=== PATIENT | female | born 1985 | race Asian ===

== ENCOUNTER 2016-06-23 17:21 | Emergency (ER) | payer BC, OTHER ==
[2016-06-23 18:04] VITALS: BP 111/70
--- NOTE | 2016-06-23 18:17 | UC ---
Throat Pain/Nasal Hansel HPI - HPI Summary HPI Summary: SORE THROAT X 2 DAYS + COUGH , CHEST CONGESTION NO FEVER, NO CHILLS - History of Current Complaint Chief Complaint: UCRespiratory Stated Complaint: SORE THROAT,COUGH,CONGESTION Time Seen by Provider: 06/23/16 18:11 Hx Obtained From: Patient Hx Last Menstrual Period: 06/13/16 Onset/Duration: Gradual Onset, Lasting Days - 2, Still Present Severity: Moderate Cough: Nonproductive Associated Signs & Symptoms: Negative: Dysphagia, FB Sensation, Drooling, Wheezing, Sinus Discomfort, Nasal Discharge, Fever, Vomiting, Rash - Allergies/Home Medications Allergies/Adverse Reactions: Allergies Allergy/AdvReac Type Severity Reaction Status Date / Time trees Allergy Runny Nose Uncoded 06/23/16 18:05 PMH/Surg Hx/FS Hx/Imm Hx Previously Healthy: Yes Endocrine History Of: Denies: Diabetes Cardiovascular History Of: Denies: Cardiac Disorders Respiratory History Of: Denies: Asthma - Surgical History Surgical History: Yes Surgery Procedure, Year, and Place: oral - Family History Known Family History: Positive: Cardiac Disease - father [place] at age 60, Diabetes - mother - Social History Alcohol Use: Occasionally Substance Use Type: None Smoking Status (MU): Never Smoked Tobacco Review of Systems Constitutional: Negative Skin: Negative Eyes: Negative ENT: Sore Throat Respiratory: Cough Cardiovascular: Negative All Other Systems Reviewed And Are Negative: Yes Physical Exam Triage Information Reviewed: Yes Appearance: Well-Appearing, No Pain Distress, Well-Nourished Vital Signs: Initial Vital Signs Temp 98.4 F 06/23/16 17:57 Pulse 78 06/23/16 17:57 Resp 20 06/23/16 17:57 BP 111/70 06/23/16 17:57 Pulse Ox 100 06/23/16 17:57 Vital Signs Reviewed: Yes Eyes: Positive: Conjunctiva Clear ENT: Positive: Normal ENT inspection, Hearing grossly normal, Pharyngeal erythema, TMs normal. Negative: Nasal congestion, Nasal drainage Neck: Positive: Supple, Nontender, No Lymphadenopathy Respiratory: Positive: Chest non-tender, Lungs clear, Normal breath sounds Cardiovascular: Positive: RRR, No Murmur, Pulses Normal Throat Pain/Nasal Course/Dx - Differential Dx/Diagnosis Provider Diagnoses: VIRAL PHARYNGITIS Discharge - Discharge Plan Condition: Stable Disposition: HOME Prescriptions: Benzonatate CAP* [Tessalon 100 MG CAP*] 100 mg PO TID #21 cap Patient Education Materials: Pharyngitis (ED) Additional Instructions: FOLLOW NEEDED
== END 2016-06-23 18:31 | disposition home or self-care (01) ==
LOC: UCCORT 17:21
DX: J02.9 Acute pharyngitis, unspecified (principal)
CPT/HCPCS: 99212; G0463

== ENCOUNTER 2018-01-28 15:36 | Emergency (ER) | payer BC, OTHER ==
[2018-01-28 15:49] VITALS: BP 108/63
--- NOTE | 2018-01-28 16:12 | ED ---
HPI Chest Pain - HPI Summary HPI Summary: 32 yr old female with the complaint of chest pain. Onset 2-3 days ago, and the pain came on very suddenly, sharp. She denies SOB. She denies dizziness. She denies fever, chills. She denies leg swelling. The patient is a non smoker. She denies a family history of PE, or DVT. - History of Current Complaint Chief Complaint: UCChestPain Time Seen by Provider: 01/28/18 15:50 Hx Last Menstrual Period: 01/01/18 Pain Intensity: 0 - Allergy/Home Medications Allergies/Adverse Reactions: Allergies Allergy/AdvReac Type Severity Reaction Status Date / Time trees Allergy Runny Nose Uncoded 06/23/16 18:05 Home Medications: Home Medications Folic Acid/Multivit-Min/Lutein [Multi-Vitamin Gummies] 1 each PO DAILY 01/28/18 [History Confirmed 01/28/18] PMH/Surg Hx/FS Hx/Imm Hx Endocrine/Hematology History: Denies: Hx Diabetes Respiratory History: Denies: Hx Asthma - Surgical History Surgery Procedure, Year, and Place: oral Infectious Disease History: No Infectious Disease History: Denies: Hx Hepatitis, Hx of Known/Suspected MRSA, Traveled Outside the [place] in Last 30 Days - Family History Known Family History: Positive: Cardiac Disease - father [place] at age 60, Diabetes - mother - Social History Occupation: Employed Full-time Alcohol Use: Rare Substance Use Type: Reports: None Smoking Status (MU): Never Smoked Tobacco Review of Systems Constitutional: Negative Positive: Chest Pain Positive: Shortness Of Breath All Other Systems Reviewed And Are Negative: Yes Physical Exam Triage Information Reviewed: Yes Vital Signs On Initial Exam: Initial Vitals Temp Pulse Resp BP Pulse Ox 97.8 F 73 15 108/63 100 01/28/18 15:44 01/28/18 15:44 01/28/18 15:44 01/28/18 15:44 01/28/18 15:44 Vital Signs Reviewed: Yes Appearance: Positive: Well-Appearing, No Pain Distress Skin: Positive: Warm, Skin Color Reflects Adequate Perfusion Head/Face: Positive: Normal Head/Face Inspection Eyes: Positive: EOMI ENT: Positive: Pharynx normal, TMs normal Neck: Positive: Nontender Respiratory/Lung Sounds: Positive: Clear to Auscultation, Breath Sounds Present Cardiovascular: Positive: RRR. Negative: Murmur Abdomen Description: Positive: Nontender. Negative: Distended Musculoskeletal: Positive: Strength/ROM Intact. Negative: Edema Left, Edema Right Neurological: Positive: Sensory/Motor Intact, Alert, Oriented to Person Place, Time, CN Intact II-III, Normal Gait, Speech Normal Psychiatric: Positive: Normal - Allred Coma Scale Best Eye Response: 4 - Spontaneous Best Motor Response: 6 - Obeys Commands Best Verbal Response: 5 - Oriented Coma Scale Total: 15 Diagnostics - Vital Signs Vital Signs Temp Pulse Resp BP Pulse Ox 01/28/18 15:44 97.8 F 73 15 108/63 100 - Laboratory Lab Statement: Any lab studies that have been ordered have been reviewed, and results considered in the medical decision making process. - EKG 01/28/18 Cardiac Rate: NL EKG Rhythm: Sinus Rhythm ST Segment: Normal Ectopy: None EKG Comparison: No Significant Change Chest Pain Course/Dx - Course Course Of Treatment: 32 yr old female with chest pain etiology not known. She signed out AMA and refused transport to the ER for further evaluation. - Diagnoses Provider Diagnoses: Chest pain Discharge - Sign-Out/Discharge Documenting (check all that apply): Patient Departure All imaging exams completed and their final reports reviewed: No Studies - Discharge Plan Condition: Good Disposition: AGAINST MEDICAL ADVICE Referrals: Jakob Britt MD [Primary Care Provider] - - Billing Disposition and Condition Condition: GOOD Disposition: Against Medical Advice
== END 2018-01-28 16:14 | disposition left against medical advice (07) ==
LOC: UCCORT 15:36
DX: R07.9 Chest pain, unspecified (principal); Z91.09 Other allergy status, other than to drugs and biological substances
CPT/HCPCS: 93005; 99212; G0463

== ENCOUNTER 2018-03-07 17:21 | Emergency (ER) | payer BC ==
[2018-03-07 18:51] VITALS: BP 105/63
--- NOTE | 2018-03-07 19:00 | UC ---
Throat Pain/Nasal Hansel HPI - HPI Summary HPI Summary: cough, intermittent sore throat, nasal congestion, and headache started yesterday. is sick contact. nothing makes it worse, otc meds did not help. nothing makes it better. - History of Current Complaint Chief Complaint: UCGeneralIllness Stated Complaint: COLD SYMPTOMS Time Seen by Provider: 03/07/18 18:43 Hx Obtained From: Patient Hx Last Menstrual Period: 02/05/19 Pain Intensity: 7 Pain Scale Used: 0-10 Numeric - Allergies/Home Medications Allergies/Adverse Reactions: Allergies Allergy/AdvReac Type Severity Reaction Status Date / Time trees Allergy Runny Nose Uncoded 03/07/18 18:45 Home Medications: Home Medications Dm/PE/Acetaminophen/Doxylamine [Daytime-Nighttime Cold-Flu] 2 each PO BID PRN [History Confirmed 03/07/18] PMH/Surg Hx/FS Hx/Imm Hx Previously Healthy: Yes - Surgical History Surgical History: Yes Surgery Procedure, Year, and Place: oral - Family History Known Family History: Positive: Cardiac Disease - father [place] at age 60, Diabetes - mother - Social History Alcohol Use: Occasionally Substance Use Type: None Smoking Status (MU): Never Smoked Tobacco Review of Systems All Other Systems Reviewed And Are Negative: Yes Constitutional: Negative: Fever, Chills, Fatigue Skin: Negative: Rash ENT: Positive: Sore Throat, Ear Ache, Nasal Discharge, Sinus Congestion. Negative: Sinus Pain/Tenderness Respiratory: Positive: Cough Cardiovascular: Positive: Negative Neurological: Negative: Headache Physical Exam Triage Information Reviewed: Yes Appearance: Well-Appearing Vital Signs: Initial Vital Signs Temp 97.8 F 03/07/18 18:47 Pulse 65 03/07/18 18:47 Resp 16 03/07/18 18:47 BP 105/63 03/07/18 18:47 Pulse Ox 100 03/07/18 18:47 Vital Signs Reviewed: Yes Eyes: Positive: Conjunctiva Clear ENT: Positive: Pharynx normal, TMs normal, Uvula midline. Negative: Sinus tenderness Neck exam: Normal Neck: Positive: No Lymphadenopathy Respiratory Exam: Normal Cardiovascular Exam: Normal Skin: Negative: Rashes Throat Pain/Nasal Course/Dx - Course Assessment/Plan: Less than one day of URI symptoms. Vitals and exam unremarkable. otc meds recommended. - Differential Dx/Diagnosis Differential Diagnosis/HQI/PQRI: Pharyngitis, URI, Other Provider Diagnosis: Upper respiratory infection, viral Discharge - Sign-Out/Discharge Documenting (check all that apply): Patient Departure All imaging exams completed and their final reports reviewed: No Studies - Discharge Plan Condition: Good Disposition: HOME Prescriptions: Dextromethorphan/Benzocaine [Cepacol Sorethroat-Cough Ish] 1 each PO Q4HR PRN # 90 lozenge PRN Reason: Congestion Patient Education Materials: Upper Respiratory Infection (DC) Referrals: Jakob Britt MD [Primary Care Provider] - - Billing Disposition and Condition Condition: GOOD Disposition: Home
== END 2018-03-07 19:07 | disposition home or self-care (01) ==
LOC: UCCORT 17:21
DX: J06.9 Acute upper respiratory infection, unspecified (principal)
CPT/HCPCS: 99212; G0463

== ENCOUNTER 2019-03-18 14:32 | Emergency (ER) | payer BC ==
[2019-03-18 15:11] VITALS: BP 98/60
[2019-03-18 15:26] LABS: Influenza A Molecular Negative (Negative); Influenza B Molecular Negative (Negative)
--- NOTE | 2019-03-18 16:55 | UC ---
General HPI - HPI Summary HPI Summary: 33 yo David caballero, returned from [place] 10 days where she had been travelling for 3 weeks. She self quarantined until yesterday. Last night she slept for 10 hours, and has had a mild bitemporal headache, mild sore throat, and mild inspiratory chest discomfort since this morning. Her symptoms have not progressed through the day. Typically she is good health and takes no regular medications. She has no hx of significant respiratory illness. Recently submitted a stool sample to her PMD for sampling as she is concerned that she might have a bowel parasite. She passed a thin worm like structure rectally several days ago. Travel hx was obtained and she did pass through [place] on 03/05/19, where several passengers boarded. Infection control and the health department was contacted and guided our actions today. - History of Current Complaint Chief Complaint: UCRespiratory Stated Complaint: BUSTAMANTE,ST,LOW ENERGY Time Seen by Provider: 03/18/19 16:47 Hx Obtained From: Patient Hx Last Menstrual Period: 03/06/19 Onset/Duration: Sudden Onset, Lasting Hours Timing: Constant Onset Severity: Mild Current Severity: Moderate Pain Intensity: 5 Associated Signs & Symptoms: Positive: Chest Pain - mild with deep inspiration, Headache - mild bi-temporal. Negative: Cough, Diaphoresis, Nausea, Syncope, SOB - Allergy/Home Medications Allergies/Adverse Reactions: Allergies Allergy/AdvReac Type Severity Reaction Status Date / Time trees Allergy Runny Nose Uncoded 03/07/18 18:45 Home Medications: Home Medications Ascorbic Acid TAB* [Vitamin C TAB*] 1,000 mg PO DAILY 03/18/19 [History Confirmed 03/18/19] Cholecalciferol (Vitamin D3) [Vitamin D3] 2,000 unit PO DAILY 03/18/19 [History Confirmed 03/18/19] [place]-3 Fatty Acids/Fish Oil [Fish Oil 1,000 mg Softgel] 1 each PO DAILY [History Confirmed 03/18/19] Vitamin B Complex [Super B-50 Complex] 1 each PO DAILY 03/18/19 [History Confirmed 03/18/19] PMH/Surg Hx/FS Hx/Imm Hx Previously Healthy: Yes - Surgical History Surgical History: Yes Surgery Procedure, Year, and Place: oral - Family History Known Family History: Positive: Cardiac Disease - father [place] at age 60, Diabetes - mother - Social History Alcohol Use: Occasionally Substance Use Type: None Smoking Status (MU): Never Smoked Tobacco Review of Systems All Other Systems Reviewed And Are Negative: Yes Constitutional: Positive: Negative Skin: Positive: Negative Eyes: Positive: Negative ENT: Positive: Sore Throat Respiratory: Positive: Other - mild inspiratory chest pain. Cardiovascular: Positive: Chest Pain Gastrointestinal: Positive: Diarrhea - Loose non-bloody stool yesterday, and once last week. Several days ago saw a thin worm like thread in her stool which she thought might be a parasite from eating sushi. She has hand no weight loss, normal appetite, no abdominal pain. Genitourinary: Positive: Negative Motor: Positive: Negative Neurovascular: Positive: Negative Musculoskeletal: Positive: Negative Neurological: Positive: Headache Psychological: Positive: Negative Is Patient Immunocompromised?: No Physical Exam Triage Information Reviewed: Yes Appearance: Well-Appearing, No Pain Distress, Other: - Examined in room 7 following donning of PAPR and protective gown and gloves. Vital Signs: Initial Vital Signs Temp 97.4 F 03/18/19 14:46 Pulse 87 03/18/19 14:46 Resp 20 03/18/19 14:46 BP 98/60 03/18/19 14:46 Pulse Ox 98 03/18/19 14:46 Eye Exam: Normal - MARIANNA, no conjunctival injection, normal eye movement. ENT: Positive: Pharyngeal erythema - mild posterior erythema., TMs normal, Other - Normal mucous membranes. Dental Exam: Normal Neck: Positive: Supple, Nontender, No Lymphadenopathy Respiratory: Positive: Lungs clear, Normal breath sounds, No respiratory distress Cardiovascular: Positive: RRR, No Murmur Abdomen Description: Positive: Nontender, No Organomegaly, Soft. Negative: Distended, Guarding Musculoskeletal Exam: Normal Neurological Exam: Normal Neurological: Positive: Alert, Muscle Tone Normal Psychological Exam: Normal Skin Exam: Normal Skin: Negative: Rashes - examined head, neck, arms and torso Course/Dx - Course Course Of Treatment: Advised isolation and health department will evaluate tomorrow. --see discharge instuctions. - Diagnoses Provider Diagnosis: Viral syndrome Discharge ED - Sign-Out/Discharge Documenting (check all that apply): Patient Departure All imaging exams completed and their final reports reviewed: No Studies - Discharge Plan Condition: Stable Disposition: HOME Patient Education Materials: Viral Syndrome (ED) Forms: *Work Release Referrals: Jakob Britt MD [Primary Care Provider] - Additional Instructions: You are being discharged to isolation at home. Your present symptoms are mild, and you have a normal exam. Your lung and heart sounds are normal, and you do not have concerning findings. However, should this be Coronavirus, you could develop a pneumonia. The symptoms of that are fever and worsening shortness of breath. If you develop fever or shortness of breath, please contact the [facility] ([phone]) or [facility] ([phone]) and advise them that you have been assessed here and were advised quarantine due to your symptoms and recent travel to [place]. Let them know that you are concerned about progressive symptoms and the need to be evaluated again. In that way, they can be prepared for your arrival. Should you travel to the emergency department, ensure that you wear a mask. The Health Department will contact you tomorrow to advise you about further testing and how to plan for your 's return home. The infectious control person is at [phone] (Rebecca or Krista)--Rebecca is familiar with your information. You can also call back here if you have questions ([phone]), until 10 pm. Please do not leave your home or allow other persons into your home. In the meantime, treat your symptoms with a high intake of fluids, rest, and use ibuprofen 600mg up to 4 times per day OR acetaminophen 650 mg up to 4 times per day for relief of headache or aches and pains. You can gargle with warm water and salt. Maintain a high intake of fluids and eat healthfully. - Billing Disposition and Condition Condition: STABLE Disposition: Home
== END 2019-03-18 17:30 | disposition home or self-care (01) ==
LOC: UCCORT 14:32
DX: B34.9 Viral infection, unspecified (principal); J02.9 Acute pharyngitis, unspecified; R51 Headache; R07.9 Chest pain, unspecified; R19.7 Diarrhea, unspecified; Z91.09 Other allergy status, other than to drugs and biological substances
CPT/HCPCS: 87651; 99211; G0463